=== PATIENT | female | born 1960 | race Caucasian/White ===

== ENCOUNTER 2022-07-05 21:03 | Emergency (ER) | payer BC, SELFPAY ==
--- NOTE | ~2022-07-05 | XR_ITS ---
EXAMINATION: XR FOREARM, LEFT CLINICAL INFORMATION: Swelling COMPARISON: None available. TECHNIQUE: AP and lateral views of the left forearm were obtained. FINDINGS: Bone alignment is normal. No fracture or dislocation. Joint spaces are normal. There is diffuse soft tissue swelling over the forearm. No abnormal air collection or foreign body seen. XR/XR forearm LT 2V IMPRESSION: Diffuse soft tissue swelling over the forearm.
[2022-07-05 21:12] VITALS: BP 144/83; PULSE 87; RESP 20; TEMP 36.4; O2SAT 97; BMI 21.6
[2022-07-05 23:15] LABS: Basophils Absolute Auto 0.1 X10*3/uL (0.0-0.2); Basophils Percent Auto 0.7 % (0-2); Eosinophils Absolute Auto 0.5 X10*3/uL (0.0-0.4); Eosinophils Percent Auto 4.7 % (0-4); Hemoglobin 14.8 g/dl (12.0-16.0); Imm Gran Abs Auto 0.03 X10*3/uL (0.00-0.03); Imm Gran Pct Auto 0.3 % (0.0-0.4); Lymphocytes Absolute Auto 3.1 X10*3/uL (1.2-4.9); Lymphocytes Percent Auto 27.9 % (20-40); MANUAL DIFF FLAG NO; Mean Corpuscular HGB Conc 34.4 g/dl (31.0-35.0); Mean Corpuscular Hemoglobin 32.3 pg (27.0-33.0); Mean Corpuscular Volume 93.9 fL (80.0-98.0); Mean Platelet Volume 8.9 fL (9.4-12.3); Monocytes Absolute Auto 0.9 X10*3/uL (0.1-1.2); Monocytes Percent Auto 8.2 % (2-11); Neutrophils Absolute Auto 6.5 x10*3/uL (2.0-8.3); Neutrophils Percent Auto 58.2 % (45-73); Platelet Count 286 X10*3/uL (160-400); Red Blood Count 4.58 X10*6/uL (4.20-5.50); Red Cell Distribution Width 12.7 % (11.0-16.0); White Blood Count 11.2 X10*3/uL (4.8-10.8)
[2022-07-05 23:37] LABS: Alanine Aminotransferase 10 U/L (0-31); Albumin Level 4.5 g/dL (3.5-5.0); Alkaline Phosphatase 86 U/L (39-117); Anion Gap 14 (12-20); Aspartate Amino Transferase 15 U/L (5-31); Bilirubin Total 0.6 mg/dL (0.0-1.0); Blood Urea Nitrogen 9 mg/dL (9-16); Calcium 9.2 mg/dL (8.4-10.2); Carbon Dioxide 25 mmol/L (22-29); Chloride 108 mmol/L (96-108); Creatinine Clr Calc Pharmacy 69.9; Estimated Glomerular Filt Rate > 60; Glucose Random 102 mg/dL (60-115); Potassium 3.6 mmol/L (3.3-5.1); Sodium 143 mmol/L (135-145); Total Protein 6.9 g/dL (6.5-8.0)
--- OUTSIDE RECORDS SUMMARY | 2022-07-06 01:13 | XMS_ITS | Continuity of Care Document ---
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 Refills 0, Maintenance, 04/12/20 14:07:00 EST, Route to Pharmacy Electronically, [facility]/pharmacy #[id number], Partial fill upon patientrequest if the prescription is for a schedule II op... Start Date: 04/12/20 Status: Ordered gabapentin 300 mg oral capsule 300 mg, 1, capsule, By Mouth, Daily, Refills 0, Maintenance, 03/24/20 16:14:00 EST, Partial fill upon patient request if the prescription is for a schedule II opioid drug. Start Date: 03/24/20 Status: Ordered Probiotic Formula (Bacillus Coagulans) oral capsule 1 capsule, By Mouth, Daily, # 30 capsule, 0 Refills, Maintenance, 04/13/20 17:44:00 EST, Capsule, Partial fill upon patient request if the prescription is for a schedule II opioid drug. Start Date: 04/13/20 Status: Ordered zolpidem 10 mg oral tablet TAKE 1 TABLET BY MOUTH EVERY DAY AT BEDTIME NEEDED Start Date: 03/24/20 Status: Ordered Problem List Condition Effective Dates Status Health Status Inform ant Chronic back pain(Confirmed) Active Nicotine dependence(Confirmed) Active Social History Social History Type Response Smoking Status 10 or more cigarette s (1/2 pack or more)/day in last 30 days entered on: 04/09/20 Sex
--- OUTSIDE RECORDS SUMMARY | 2022-07-06 01:13 | XMS_ITS | Continuity of Care Document ---
Author Name Unknown Organization Wound Care Address [address] [place] [phone]- Care Team Providers Care Ironworker Name Role Phone Delvin Connolly MD [id number] W[facility] Care [address] [place] [address]- Attending Physician: Edwin Lawrence MD Admitting Physician: [...] 04/12/20 14:07:00 EST, Route to Pharmacy Electronically, [facility]/pharmacy #[id number], Partial fill upon patientrequest if the prescription [...]
--- OUTSIDE RECORDS SUMMARY | 2022-07-06 01:14 | XMS_ITS | Continuity of Care Document ---
Author Name Unknown Organization [facility] ter Address [address] [place] [phone]- Care Team Providers Care Public Health Nurse Name Role Phone Delvin Connolly MD Primary Care Physician [phone] Encounter [facility] Date(s): 04/11/20 - 05/11/[address] [id number] Attending Physician: Not on Staff, Attending MD Admitting Physician: Not on Staff, Admitting MD Referring Physician: Not on Staff, Referring MD Allergies, Adverse Reactions, Alerts Substance Reaction [...] 04/12/20 14:07:00 EST, Route to Pharmacy Electronically, [facility]/pharmacy #[id number], Partial fill upon patientrequest if the prescription [...]
--- OUTSIDE RECORDS SUMMARY | 2022-07-06 01:14 | XMS_ITS | Continuity of Care Document ---
Author Name Unknown Organization Wound Care Address [address] [place] [phone]- Care Team Providers Care Line Tender Name Role Phone Delvin Connolly MD Primary Care Physician Encounter [facility] [place] [id number] Date(s): 04/15/20 - 05/15/20 Wound Care [address] [place] [id number] Attending Physician: Shad Waggoner Admitting Physician: Shad Waggoner Referring Physician: trShad Allergies, Adverse Reactions, Alerts Substance Reaction Severity [...] 04/12/20 14:07:00 EST, Route to Pharmacy Electronically, [facility]/pharmacy #[id number], Partial fill upon patientrequest if the prescription [...]
== END 2022-07-06 01:48 | disposition left against medical advice (07) ==
PROVIDERS: Emergency Provider Emergency Medicine; PCP Family Medicine
DX: R22.32 Localized swelling, mass and lump, left upper limb (principal); T22.20XD Burn of second degree of shoulder and upper limb, except wrist and hand, unspecified site, subsequent encounter; X58.XXXD Exposure to other specified factors, subsequent encounter
CPT/HCPCS: 36415; 73090; 80053; 85025; 99281; 99283